=== PATIENT | female | born 1950 | race Asian ===

== ENCOUNTER 2025-07-18 15:30 | Emergency (ER) | payer OTHER ==
[~2025-07-18] VITALS: Ht 154.9 cm; Wt 60.0 kg
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
[2025-07-18 18:24] VITALS: BP 133/80; PULSE 67; RESP 18; TEMP 97.8; O2SAT 97
== END 2025-07-18 18:31 | disposition home or self-care (01) ==
LOC: ER 15:30
DX: S01.81XA Laceration without foreign body of other part of head, initial encounter (principal); S09.8XXA Other specified injuries of head, initial encounter; F07.81 Postconcussional syndrome; I10 Essential (primary) hypertension; Z88.0 Allergy status to penicillin; X58.XXXA Exposure to other specified factors, initial encounter; Y93.89 Activity, other specified; Y92.89 Other specified places as the place of occurrence of the external cause; Y99.8 Other external cause status